=== PATIENT | male | born 1995 | race Caucasian/White ===

== ENCOUNTER 2023-08-06 14:06 | Outpatient (CLI) | payer BC ==
[~2023-08-06] VITALS: Ht 182 cm; Wt 104.0 kg
[2023-08-06] MEDS ORDERED: SUCR1TAB36 PO (15:29)
[2023-08-06] MEDS ORDERED: FLUO20CA48 PO (15:29)
[2023-08-06] MEDS ORDERED: PANT40TA52 PO (15:29)
[2023-08-08] MEDS ORDERED: ACHD5005 PO (13:07)
== END 2023-08-07 14:33 | disposition home or self-care (01) ==
LOC: PREOP 14:06
PROVIDERS: ATTEND Surgery
DX: Z01.818 Encounter for other preprocedural examination (principal)

== ENCOUNTER 2023-08-08 07:50 | Day surgery (SDC) | payer BC ==
[2023-08-08] VITALS (10 sets, daily range): BP systolic 97–130; BP diastolic 46–68
[~2023-08-08] VITALS: Ht 182 cm; Wt 104.0 kg
[~2023-08-08 07:50] MED LIST: FLUO20CA48 PO; PANT40TA52 PO; SUCR1TAB36 PO
[2023-08-08] MEDS ORDERED: CLINDAMYCIN 600 MG/50 ML IVPB 50 ML IV ONE (08:15)
[2023-08-08] MEDS ORDERED: LACTATED RINGERS 1,000 ML 1,000 ML IV PRN (08:15)
[2023-08-08] MEDS ORDERED: ROCURONIUM 50 MG/5 ML VIAL IV ONE (10:15)
[2023-08-08] MEDS ORDERED: LIDOCAINE PF 2% 5 ML VIAL ONE (10:15)
[2023-08-08] MEDS ORDERED: dexAMETHasone INJ 10 MG/ML 1 ML VIAL ONE (10:15)
[2023-08-08] MEDS ORDERED: ONDANSETRON INJECTION 4 MG/2 ML (SDV) ONE (10:15)
[2023-08-08] MEDS ORDERED: fentaNYL INJECTION 100 MCG/2 ML VIAL ONE (10:15)
[2023-08-08] MEDS ORDERED: MIDAZOLAM INJ 2 MG/2 ML VIAL ONE (10:15)
[2023-08-08] MEDS ORDERED: proPOfol INJECTION 200 MG/20 ML VIAL IV ONE (10:15)
--- NOTE | 2023-08-08 10:27 | Progress Note-Pre Operative ---
Pre-Operative Progress Note Date of Available H&P: Aug 01, 2023 Date H&P Reviewed: Aug 08, 2023 Time H&P Reviewed: 10:25 History & Physical: H&P Reviewed, Patient Examed, No changes noted Pre-Operative Diagnosis: GERD, Left supraclavicular mass - site marked VLAD LANDIS DO Aug 08, 2023 10:27
[2023-08-08] MEDS ORDERED: LIDOCAINE/EPI 1%-1:200,000 (XYLOCAINE) 30 ML VIAL ONE (12:00)
[2023-08-08] MEDS ORDERED: NEOSTIGMINE 1 MG/1ML 10 ML VIAL ONE (12:43)
[2023-08-08] MEDS ORDERED: GLYCOPYRROLATE INJ 0.2 MG/ML 2 ML VIAL ONE (12:43)
[2023-08-08] MEDS ORDERED: SEVOFLURANE (ULTANE) 15 ML INHAL SOLN ONE (12:44)
--- NOTE | 2023-08-08 13:00 | Progress Note-Post Operative ---
Post-Operative Progess Note Surgeon (s)/Stucco Plasterer (s) Surgeon VLAD LANDIS DO Stucco Plasterer: NORBERT Lazcano Pre-Operative Diagnosis Left supraclavicular mass - site marked Post-Operative Diagnosis same pending path Procedure & Operative Findings Date of Procedure 08/08/23 Procedure Performed/Findings Excision of Left Supraclavicular mass, below fascia 5.1cm incision Anesthesia Type GET Estimated Blood Loss Estimated blood loss (mL): scant Specimens/Packing Specimens Removed Left supraclavicular mass, appx 7x6cm VLAD LANDIS DO Aug 08, 2023 13:00
--- NOTE | 2023-08-08 13:05 | Progress Note-Post Operative ---
Post-Operative Progess Note Surgeon (s)/Biochemistry Teacher (s) Surgeon VLAD LANDIS DO Biochemistry Teacher: NORBERT Lazcano Pre-Operative Diagnosis GERD Post-Operative Diagnosis Esophagitis Gastritis Gastric polyp Procedure & Operative Findings Date of Procedure 08/08/23 Procedure Performed/Findings EGD with polypectomy removal by hot biopsy EGD with bx PROCEDURE NOTE: After informed consent was obtained, the patient was in the OR, had just had an excision of a mass and was in the supine position. He was already intubate by the METAL TREATER who then monitored vitals the entire time, heart rate, blood pressure and pulse ox and the scope was inserted down the mouth through the esophagus into the stomach. On the way down, noted some mild esophagitis, took a picture, pushed into the stomach, pushed past the antrum into the duodenum. Duodenum looked good. Pulled back and did a biopsy of the antrum, then retroflexed the scope; did not see a hiatal hernia. However, I did see a Gastric polyp and elected to remove this with hot biopsy. I was able to remove the whole polyp and it was then sent to pathology. I took a picture of this and then pulled the scope into the GE junction and then did a biopsy of the GE junction. Pushed the scope back into the stomach, suctioned all the air out of the stomach. At this point pulled the scope up the esophagus and out the mouth. The patient tolerated the procedure, and he recovered in PACU. Anesthesia Type GET Estimated Blood Loss Estimated blood loss (mL): scant Specimens/Packing Specimens Removed antral bx GE jxn bx Gastric polyp VLAD LANDIS DO Aug 08, 2023 13:05
[2023-08-08] MEDS ORDERED: ACHD5005 PO (13:07)
--- NOTE | 2023-08-08 13:09 | Endoscopy Discharge Instruct ---
Endo Procedure/Findings Findings 1.: Gastritis 2.: Other Findings (Gastric polyp) Discharge Instructions - Activity: You might feel a little sleepy until tomorrow. This is due to the medicine you received to relax you. Until tomorrow, you should: NOT drive a car, operate machinery or power tools. NOT drink any alcoholic beverages. NOT make any important decisions or sign importortant papers. Do not return to work until tomorrow, unless otherwise instructed. Resume previous activities tomorrow. Diet: Start by taking liquids. If you tolerate liquids, advance to solid food. 1.: EGD in 3 years Notify Physician - If you experience excessive bleeding, unusual abdominal pain, fever, or chest pain, contact your doctor immediately. Follow-Up: Other Follow up in my office in one week VLAD LANDIS DO Aug 08, 2023 13:09
--- NOTE | 2023-08-08 13:10 | Discharge Inst-Surgical ---
Discharge Inst-Surgical Depart Medication/Instructions New, Converted or Re-Newed RX: Transmitted to Pharmacy Patient Instructions Follow up Appt: Make appointment for 1 week. [phone] Instructions: No lifting greater than 20 pounds. No strenuous activity. May shower in 24 hours, no tub bath or soaking. Use incentive spirometer at home as directed. No Smoking Skin/Wound Care: May remove bandages in am. You need to leave the stitches in place and come to office to have them removed. Symptoms to Report: Appetite Changes, Extremity Discoloration, Numbness/Tingling, Swelling Increased, Bleeding Excessive, Eyesight Changes, Pain Increased, Urine Color Change, Constipation(Persistent), Fever over 101 degree F, Pain/Pressure in chest, Urinating Difficulty, Cough Up/Vomit Blood, Heart Beat Irreg/Pounding, Pain/Pressure in jaw, Cramps in feet or legs, Lightheadedness, Pain/Pressure in shoulder, Diarrhea(Persistent), Memory Changes Suddenly, Questions/Concerns, Weight gain consecutive days, Dizziness/Fainting, Nausea/Vomiting, Shortness of Breath, Weight gain over 2 pounds If questions or concerns contact your physician Or seek help at emergency department. Activity Activity as Tolerated: Yes Driving Instructions: No Driving/Refer to Dr. Haynes Discharge Diet: No Restrictions Diet After 24 Hours: Clear Liquid if Nauseous If Any Problems/Questions/Issu: Contact Your Physician, Go to Emergency Room Skin/Wound Care Infection Signs and Symptoms: Increased Redness, Foul Odor of Wound, Increased Drainage, Skin Itchy or Has a Rash, Increased Swelling, Temperature Above 101 F Bathing Instructions: Shower Stitches/[place]/Dermabond Dis: Care of Rolfes VLAD LANDIS DO Aug 08, 2023 13:10
--- NOTE | 2023-08-08 13:37 | Anesthesia-General Post-Op ---
General Patient Condition Mental Status/LOC: Same as Preop Cardiovascular: Satisfactory Nausea/Vomiting: Absent Respiratory: Satisfactory Pain: Controlled Complications: Absent Post Op Complications Complications None Follow Up Care/Instructions Patient Instructions None needed. Anesthesia/Patient Condition Patient Condition Patient is doing well, no complaints, stable vital signs, no apparent adverse anesthesia problems. No complications reported per nursing. HEIDY RENTERIA CRNA Aug 08, 2023 13:37
[2023-08-08] MEDS ORDERED: ONDANSETRON INJECTION 4 MG/2 ML (SDV) IVP PRN (13:45)
[2023-08-08] MEDS ORDERED: fentaNYL INJECTION 100 MCG/2 ML VIAL IVP ONE (13:45)
[2023-08-08] MEDS ORDERED: morphine INJ 10 MG/ML 1ML (SYR OR VIAL) IVP ONE (13:45)
--- NOTE | 2023-08-15 21:36 | OPERATIVE REPORT ---
DATE OF SERVICE: 08/08/2023 PREOPERATIVE DIAGNOSIS: Left supraclavicular mass. POSTOPERATIVE DIAGNOSIS: Left supraclavicular mass, pending pathology. PROCEDURE: Excision of left supraclavicular mass, it was below the fascia, it was a 5.17 cm incision. SURGEON: Ronan Chapa DO MARKETING OPERATIONS SPECIALIST: ALEX Lazcano. BLOOD LOSS: Scant. FLUIDS: Per anesthesia. POSTOPERATIVE CONDITION: Stable. SPECIMENS: Left supraclavicular mass, which measured approximately 7 x 6 cm. DESCRIPTION OF PROCEDURE: After informed consent was obtained, the patient was brought to the operating room and placed on the table in supine position. He was sterilely prepped and draped in normal fashion. Local lidocaine used to infiltrate the skin just above this mass, it was just above the clavicle. I made an incision with a #15 blade, carried down through the skin into the subcutaneous tissue, then deepened down to subcutaneous tissue with Bovie electrocautery. I actually had to go below the fascia to get this mass. It was supraclavicular mass, it looked like it was all fat. I slowly started taking this out with blunt dissection as well as a Bovie electrocautery, taking care to stay away from any vessels. I removed this en bloc. It was about 7 x 6 cm, passed this off table, copiously irrigated with normal saline. I then elected to close this incision in 2 parts, closing the deep tissue with 3-0 Vicryl and then closing the skin with 3-0 Prolene, 5 interrupted vertical mattress sutures. The area was cleaned and dried, dressing placed. The patient tolerated the procedure. Sponge and needle counts were correct at the end of the case. He was sent to recovery room in stable condition. Job ID: [id number] DocumentID: [id number] Dictated Date: 08/15/2023 16:31:25 Research Program Manager Date: 08/15/2023 21:35:00 Dictated By: RONAN CHAPA DO
== END 2023-08-08 14:17 | disposition home or self-care (01) ==
LOC: SDC 07:50
PROVIDERS: ATTEND Surgery
DX: D17.39 Benign lipomatous neoplasm of skin and subcutaneous tissue of other sites (principal); K31.7 Polyp of stomach and duodenum; K21.00 Gastro-esophageal reflux disease with esophagitis, without bleeding; K29.70 Gastritis, unspecified, without bleeding; K31.89 Other diseases of stomach and duodenum; Z28.310 Unvaccinated for COVID-19
CPT/HCPCS: 87081